=== PATIENT | male | born 1990 | race Caucasian/White ===

== ENCOUNTER 2020-09-06 19:34 | Emergency (ER) | payer SELFPAY ==
[~2020-09-06] VITALS: Ht 182.9 cm; Wt 158.8 kg
[2020-09-06 19:35] VITALS: Ht 182.9 cm; Wt 158.8 kg
[2020-09-06 20:33] LABS: BASOPHIL % 0.6 % (0.2-1.5); PLATELET COUNT 334 x10^3mcL (152-348)
[2020-09-06 21:20] LABS: UA SPECIFIC GRAVITY >=1.030 (1.005-1.035); urine erythrocyte NEGATIVE (NEGATIVE)
[2020-09-06 21:22] LABS: microscopic required? YES
[2020-09-06 22:20] LABS: CALCIUM 8.4 mg/dL (8.5-10.1); CARBON DIOXIDE 29.7 mmol/L (21-32); CHLORIDE SERUM 104 mmol/L (98-107); CREATININE SERUM 1.1 mg/dL (0.7-1.3); GFR1 > 60 mL/min; GLUCOSE SERUM 128 mg/dL (74-106); POTASSIUM SERUM 3.7 mmol/L (3.5-5.1); SODIUM SERUM 137 mmol/L (136-145)
[2020-09-06 22:22] LABS: ALBUMIN 3.1 g/dL (3.4-5.0); ALKALINE PHOSPHATASE 88 U/L (46-116); ALT/SGPT 40 U/L (16-63); AST/SGOT 39 U/L (15-37); C REACTIVE PROTEIN 4.4 mg/dL (<=0.9); LACTIC DEHYDROGENASE (LDH) 473 U/L (100-190); TOTAL PROTEIN, SERUM 7.3 g/dL (6.4-8.2)
[2020-09-07 01:11] VITALS: BP 170/53
== END 2020-09-07 01:12 | disposition left against medical advice (07) ==
LOC: ED 19:34
PROVIDERS: Student in an Organized Health Care Education/Training Program
DX: R91.8 Other nonspecific abnormal finding of lung field (principal); I50.9 Heart failure, unspecified; I10 Essential (primary) hypertension; Z20.828 Contact with and (suspected) exposure to other viral communicable diseases
CPT/HCPCS: 36600; 83880; 85378; J0456; J0696; J1100; J1650; J1940; J7040; J7050; J7060; U0003